=== PATIENT | male | born 1995 | race Caucasian/White ===

== ENCOUNTER 2018-03-15 09:42 | Outpatient (CLI) | payer OTHER, SELFPAY ==
--- NOTE | 2018-03-15 09:55 | DI.RAD_ITS ---
SYMPTOM/DIAGNOSIS: LT KNEE PAIN LEFT KNEE: Three views. No bone or joint abnormality is identified. There is a 1 cm. metallic foreign body in the soft tissues lateral to the head of the fibula. The soft tissues are otherwise unremarkable. IMPRESSION: No acute abnormality. If there is concern for internal derangement, an MRI should be considered for further evaluation.
== END 2018-03-15 10:02 ==
PROVIDERS: Visit Provider Physician Assistant
DX: M25.562 Pain in left knee (principal); M79.5 Residual foreign body in soft tissue
CPT/HCPCS: 73562

== ENCOUNTER 2018-04-21 00:59 | Outpatient (CLI) | payer OTHER, SELFPAY ==
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
== END 2018-04-21 01:19 ==
PROVIDERS: PCP Nurse Practitioner Adult Health; Visit Provider Nurse Practitioner Adult Health
DX: M25.562 Pain in left knee (principal); M23.92 Unspecified internal derangement of left knee; Z18.10 Retained metal fragments, unspecified
CPT/HCPCS: 73721

== ENCOUNTER 2023-07-22 12:42 | Emergency (ER) | payer OTHER, SELFPAY ==
[2023-07-22 12:57] VITALS: BP 136/72; PULSE 115; RESP 18; TEMP 36.5; O2SAT 96
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
[2023-07-22] MEDS: Acetaminophen 325 MG TAB 650 MG PO (13:50)
--- NOTE | 2023-07-22 14:11 | DI.RAD_ITS ---
Exam(s) XR ELBOW LT COMPLETE EXAM: XR ELBOW LT COMPLETE CLINICAL HISTORY: fall with possible fx. TECHNIQUE: 2D digital imaging was performed. COMPARISON: No exams were available for comparison FINDINGS: 3 views There is a mildly depressed fracture in the lateral half of the radial head-neck. No other fractures evident. Joint effusion noted. IMPRESSION: Radial head-neck fracture as described above. There is slight step-off at the articular surface frac ture site. DATA REPOSITORY: RADIATION DOSE DELIVERED:
[2023-07-22 14:57] VITALS: PULSE 103
[2023-07-22 15:04] VITALS: PULSE 94; RESP 18; O2SAT 98
== END 2023-07-22 15:03 ==
PROVIDERS: Emergency Provider Nurse Practitioner Family; PCP Nurse Practitioner Adult Health
DX: S52.135A Nondisplaced fracture of neck of left radius, initial encounter for closed fracture (principal); F17.210 Nicotine dependence, cigarettes, uncomplicated; W00.0XXA Fall on same level due to ice and snow, initial encounter; Y93.67 Activity, basketball; Y92.39 Other specified sports and athletic area as the place of occurrence of the external cause
CPT/HCPCS: 99283; 73080

== ENCOUNTER 2023-08-17 15:58 | Outpatient (CLI) | payer OTHER, SELFPAY ==
--- NOTE | 2023-08-17 11:00 | DI.RAD_ITS ---
Exam(s) XR ELBOW LT COMPLETE EXAM: XR ELBOW LT COMPLETE CLINICAL HISTORY: F/U FRACTURE. TECHNIQUE: 2D digital imaging was performed. Three views. COMPARISON: DX ELBOW 2V from 07/20/2023 CR XR ELBOW LT COMPLETE from 07/22/2023 FINDINGS: BONES: Slightly increased separation at the radial head fracture versus differences in projection. M ild callus formation. Question of slight declivity in the capitellum. No bony destructive lesion is seen. JOINTS: The elbow is normally aligned. A large joint effusion is seen. SOFT TISSUE: Posteromedial soft tissue edema. IMPRESSION: Increased separation at the articular aspect of the radial head versus differences in projection. Sl ight declivity the capitellum could represent impaction fracture. DATA REPOSITORY: RADIATION DOSE DELIVERED:
== END 2023-08-17 15:59 | disposition home or self-care (01) ==
LOC: DIORS 15:58
PROVIDERS: Visit Provider Student in an Organized Health Care Education/Training Program
DX: S52.122D Displaced fracture of head of left radius, subsequent encounter for closed fracture with routine healing (principal); X58.XXXD Exposure to other specified factors, subsequent encounter
CPT/HCPCS: 73080

== ENCOUNTER 2023-10-20 09:26 | Day surgery (SDC) | payer OTHER, SELFPAY ==
[2023-10-20 09:35] VITALS: BP 134/78; PULSE 94; RESP 20; TEMP 36.6; O2SAT 98
--- NOTE | 2023-10-20 09:54 | W.PM.DSUDISC ---
Date of service: 10/20/23 Time of Service: 09:54 Discharge Plan Disposition Patient Disposition: Home Condition: Good Discharge Details Reason For Visit: L Knee FB removal Attending Provider: Olivier Edmonds Primary Care Provider: Unknown,Unknown Home Meds and New Rx's Prescriptions: New hydrocodone-acetaminophen 5-325 mg tablet 1 tab PO Q6H PRN (Reason: pain) Qty: 3 0RF Continued buprenorphine HCl 8 mg tablet, sublingual 16 mg sublingual DAILY clonidine HCl 0.2 mg tablet 0.2 mg PO DAILY divalproex 500 mg tablet,delayed release (DR/EC) 2,000 mg PO DAILY docusate sodium 100 mg capsule 100 mg PO DAILY hydrocortisone [Anti-Itch (HC)] 1 % cream 1 applic topical TID PRN levothyroxine 150 mcg capsule 150 mcg PO DAILY metformin 500 mg tablet extended release 24 hr 500 mg PO DAILY omeprazole 40 mg capsule,delayed release(DR/EC) 40 mg PO DAILY quetiapine 100 mg tablet 100 mg PO TID quetiapine [Seroquel] 50 mg tablet 50 mg PO DAILY Discontinued acetaminophen 500 mg capsule 1,000 mg PO Q6H PRN ibuprofen 200 mg tablet 600 mg PO Q6H PRN Discharge Instructions Additional Instructions: Knee Manipulation Discharge Instructions Activity: You may bear weight as tolerated, using crutches only for support/comfort. You should apply ice to help with swelling and elevate when possible (especially in the first few days). Dressings: The knee dressing may come down after 72 hours. You may shower and get the wound wet at that time. Medications: - You have been prescribed hydrocodone for breakthrough pain. - Recommend to take up to 1000mg of Acetaminophen (Tylenol) and 600mg of Ibuprofen (Advil) every 8 hours as needed. Follow-up: 7-10 days Referrals: Olivier Edmonds MD [ [facility] STAFF PHYSICIAN] - Equipment/Supplies: Partial Weight Bearing Crutches Activity:: Activity as Tolerated Remove Dressings/Wound Care:: 72 hours Shower/Bathe:: 72 hours Diet:: As Tolerated Discharge Orders Discharge Orders: Discharge Order (Routine); Ordered 10/20/23 Ordered By: Gustavo Gaston DS: Diagnosis Discharge Diagnosis (1) Metal foreign body in lower extremity: Status: Acute
[2023-10-20] MEDS: Lactated Ringers 1,000 ML 80 ML IV (10:27)
[2023-10-20] MEDS: Celecoxib 200 MG CAP 400 MG PO (10:28)
[2023-10-20] MEDS: Acetaminophen 500 MG TAB 1000 MG PO (10:28)
--- NOTE | 2023-10-20 11:43 | W.ANESPRE ---
General Info Date of Service Date Performed: 10/20/23 Height: 5 ft 11 in Weight: 132.3 kg Body Mass Index (BMI): 40.6 Surgical Procedure: Operation Date: 10/20/23 12:25 Proposed Procedure Side Surgeon p Foreign Body Removal Knee Left Olivier Edmonds MD Meds Allergies and Home Medications Allergies Allergy/AdvReac Type Severity Reaction Status Date / Time mushroom Allergy Anaphylaxsi Verified 10/18/23 10:51 s Penicillins Allergy Diarrhea Verified 10/18/23 10:51 Home Medication Medication Instructions Recorded buprenorphine HCl 8 mg sublingual 16 mg sublingual DAILY 06/02/23 tablet clonidine HCl 0.2 mg tablet 0.2 mg PO DAILY 06/02/23 divalproex 500 mg tablet,delayed 2,000 mg PO DAILY 06/02/23 release docusate sodium 100 mg capsule 100 mg PO DAILY 06/02/23 hydrocortisone 1 % topical cream 1 applic topical TID PRN 06/02/23 (Anti-Itch (hydrocortisone)) levothyroxine 150 mcg capsule 150 mcg PO DAILY 06/02/23 metformin 500 mg tablet,extended 500 mg PO DAILY 06/02/23 release 24 hr omeprazole 40 mg capsule,delayed 40 mg PO DAILY 06/02/23 release quetiapine 100 mg tablet 100 mg PO TID 06/02/23 quetiapine 50 mg tablet (Seroquel) 50 mg PO DAILY 07/22/23 hydrocodone 5 mg-acetaminophen 325 1 tab PO Q6H PRN pain #3 tabs 10/20/23 mg tablet Current Visit Medications: Current Medications Generic Name Dose Route Start Last Admin Trade Name Freq PRN Reason Stop Dose Admin Acetaminophen 1,000 mg 10/20/23 06:00 10/20/23 10:28 Acetaminophen 500 Mg Tab PO 10/20/23 23:59 1,000 mg PREOP YOUNG Administration Acetaminophen 650 mg 10/20/23 09:54 Acetaminophen 325 Mg Tab PO 11/19/23 09:53 Q4H PRN PRN Hydrocodone Bitart/Acetaminophen 0 tab 10/20/23 09:54 Hydrocodone 5/Acetaminophen 325 Tab PO 11/19/23 09:53 Q3H PRN PRN Pain Celecoxib 400 mg 10/20/23 06:00 10/20/23 10:28 Celecoxib 200 Mg Cap PO 10/20/23 23:59 400 mg PREOP YOUNG Administration Ringer's Solution 1,000 mls @ 80 mls/hr 10/20/23 06:00 10/20/23 10:27 IV 10/20/23 23:59 80 mls/hr INFUSION YOUNG Administration Cefazolin Sodium 3,000 mg/ 100 mls @ 200 mls/hr 10/20/23 06:00 Sodium Chloride IVPB 10/20/23 23:59 PREOP YOUNG IV Miscellaneous Supplies 1 each 10/20/23 06:00 Iv Access IV 10/20/23 23:59 DIRECTED YOUNG Sodium Chloride 0 ml 10/20/23 06:00 Normal Saline Flush 10 Ml Syr IV 10/20/23 23:59 PRN PRN Sodium Chloride 0 ml 10/20/23 06:00 Normal Saline 10 Ml Vial IJ 10/20/23 23:59 DIRECTED PRN Sterile Water 0 ml 10/20/23 06:00 Water,Injection,Sterile 10 Ml Vial IJ 10/20/23 23:59 DIRECTED PRN PFSH Active Problems Active Problems: Problem Status Onset Code Metal foreign body in lower extremity S80.859A Status post arthroscopy of left knee Z98.890 Internal derangement of left knee M23.92 Medical History Medical History Diabetes type 2, controlled Hypothyroidism GERD (gastroesophageal reflux disease) Hx of drug abuse Adjustment disorder with anxious mood Seizures Per [facility] these have not been confirmed and there are no records, pt tells corrections that he has them but per corrections he has never had one while incarcerated. Tobacco Smoking/Tobacco Use Status: Former Tobacco Use Substance Use Substance use: Current Sobriety Substance use type: former substance user and prescription drug Vital Signs and Lab Results Vital Signs Most Recent Vital Signs in EMR: Most Recent Vital Signs Temp Pulse Resp BP Pulse Ox 36.6 C 94 H 20 134/78 98 10/20/23 09:35 10/20/23 09:35 10/20/23 09:35 10/20/23 09:35 10/20/23 09:35 Point of Care Results Point of Care Results: Finger Stick Blood Glucose 90 10/20/23 10:12 Lab Results Blood Type / Crossmatch: No Data to Display Complete Blood Count: No Data to Display Complete Metabolic Panel: No Data to Display Liver Function Panel: No Data to Display Coagulation Panel: No Data to Display Cardiac Panel: No Data to Display Arterial Blood Gas: No Data to Display Venous Blood Gas: No Data to Display Pancreas Panel: No Data to Display Thyroid Panel: No Data to Display Infectious Disease: No Data to Display Blood Cultures: No Data to Display Toxicology Panel: No Data to Display Anesthesia Assessment and Plan Anesthesia History Personal History: No History of General Anesthesia Family History: No Family History of Anesthesia Complications Exercise Tolerance Exercise Tolerance: Metabolic Equivalents>4 Pertinent Negatives Pertinent Negatives: No Major Cardiovascular Symptoms or Complaints, No Major Pulmonary Symptoms or Complaints and No History of CVA/TIA Cardiac & Pulmonary Exam Cardiac Exam: Normal S1/S2 Heart Sounds Pulmonary Exam: Clear Bilateral Breath Sounds Cardiac and Pulmonary Comment:: Smoker Implantable Cardiac Device Does patient have a Pacemaker or an ICD?: No Airway Exam Known Difficult Airway: No Mallampati Class: 2 Mouth Opening: Normal (> 3cm) Thyromental Distance: Greater than 3 cm Neck Range of Motion: Full ROM Neck Circumference: Thick Teeth Condition: Normal Dentition ASA Classification ASA Score: ASA 3 Emergency Case?: No NPO Status NPO Status: NPO Clears >2 hours, Solids >8 hours Anesthesia Plan Resuscitation Status: Full Code Anesthesia Technique: General Anesthesia Airway Planned: Natural Airway Monitors Used: Standard Monitors
[2023-10-20 11:56] VITALS: BMI 40.6
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
[2023-10-20] MEDS: ceFAZolin 3,000 MG in Normal Saline 100 ML 200 MG IVPB (13:00)
[2023-10-20] MEDS: Bupivacaine 0.25% Pres-Free W/EPI 30 ML VIAL ×2 (13:18→13:44)
--- NOTE | 2023-10-20 13:32 | DI.RAD_ITS ---
Exam(s) XR KNEE LT 1V EXAM: XR KNEE LT 1V CLINICAL HISTORY: FOREIGN BODY LEFT KNEE. TECHNIQUE: 2D digital imaging was performed. COMPARISON: No exams were available for comparison FINDINGS: Possibly provided during orthopedic procedure on knee. See procedure report for details Total fluoroscopy time 5 seconds IMPRESSION: Radiation exposure index/cumulative dose: Connor,r= 0.5515mGy DATA REPOSITORY: RADIATION DOSE DELIVERED:
--- NOTE | 2023-10-20 13:34 | W.PM.OP ---
Date of service: 10/20/23 Time of Service: 13:15 Operative Note Operative Note DATE OF PROCEDURE: 10/20/23 PRE-OP DIAGNOSIS: Painful Foreign Body - Left Knee POST-OP DIAGNOSIS: same PROCEDURE: Removal of Foreign Body - Left Knee Soft Tissues SURGEON: Olivier Edmonds ANESTHESIA TYPE: General:No Airway Refer to Anesthesia Record ESTIMATED BLOOD LOSS: 10 PATHOLOGY: none sent COMPLICATIONS: None Patient was transported to: PACU Patient's condition: stable Indications: I have seen Alvarado in clinic for symptoms of a painful foreign body about the lateral soft tissues of the left knee adjacent to the fibular head. I discussed the technical details of foreign body removal. It does seem to be a source of pain, reproduced in the clinic. I explained the risks of the procedure to include, but not limited to, bleeding, infection, pain, stiffness, damage to nerves and vessels, damage to muscles and tendons. Despite these risks, he elected to proceed. Findings: There is a metallic loose body adjacent to the fibular head which was mobile and irritating underlying soft tissues. It was removed in whole. Some surrounding bursitis and inflammatory tissue was removed as well. Procedure Description: Alvarado was greeted in the preoperative holding area where the correct side was identified and marked. The consent was reviewed with the patient and signed. The history and physical was updated. All questions were answered. Alvarado was brought to the operating room. He was placed in the supine position on the operating room bed. The left leg was prepped with ChloraPrep and draped in a standard fashion. The previous stockinette was placed and the surgical site was isolated and once again prepped with ChloraPrep prior to making incision. Prophylactic antibiotics in form of cefazolin were given. A timeout was performed for safe surgery. I then utilized fluoroscopy to identify the exact location of the foreign body adjacent to the fibular head. This was marked on the skin after both AP and lateral images were performed. With the knee in 90 degrees of flexion to remove some tension from the common peroneal nerve and positioned more posteriorly, I made a 3 cm incision centered over the suspected location of the foreign body. This was taken down through the skin sharply. Deeper dissection was carried out with electrocautery and bleeding was cauterized. Deeper dissection was carried down into the suprafascial tissue where the metallic foreign body was identified. There was a notable bursitis surrounding it. It was freed from bursal attachments. It was then removed in whole. Fluoroscopy confirmed removal of the foreign body. The surrounding inflammatory bursal tissue was removed with a rongeur. The wound was then irrigated. The wound was injected with 0.25% bupivacaine with epinephrine. Deep tissues were then reapproximated with 2-0 Vicryl. The skin was closed with a running 3-0 Monocryl in a subcuticular fashion. This was reinforced with skin glue. A Mepilex silver dressing was applied. Alvarado has a good prognosis. He may weight-bear as tolerated without restrictions. I would suggest some compression in the form of a knee sleeve or an Chepe wrap.
[2023-10-20 13:38] VITALS: BP 126/64; PULSE 83; RESP 16; TEMP 36.4; O2SAT 95
[2023-10-20 14:10] VITALS: BP 107/69; PULSE 78; RESP 18; TEMP 36.4; O2SAT 94
--- NOTE | 2023-10-20 14:25 | W.ANESPOSTOP ---
Postoperative Evaluation Date, Time and Location Date Performed: 10/20/23 Time Performed: 13:41 Patient Location: Day Surgery Unit Vital Signs Most Recent Imported Vital Signs: Most Recent Vital Signs Temp Pulse Resp BP Pulse Ox 36.4 C L 78 18 107/69 94 10/20/23 14:10 10/20/23 14:10 10/20/23 14:10 10/20/23 14:10 10/20/23 14:10 Pain Score Most Recent Pain Score: Most Recent Pain Score Pain Level 0 10/20/23 14:10 Assessment Mental Status: Awake (Alert & Oriented to Patient Baseline) Airway and Respiratory Function: Patent airway with normal (patient baseline) respiratory exam Cardiovascular Function: Hemodynamically Stable Hydration Status: Adequately Hydrated Nausea & Vomiting: No Nausea or Vomiting Pain: Pt. Denies Any Pain Peripheral Nerve Block: Patient did not receive a nerve block
== END 2023-10-20 14:25 | disposition home or self-care (01) ==
PROVIDERS: Visit Provider Student in an Organized Health Care Education/Training Program
PROC: (CPT 27340; principal; 2023-10-20 12:15)
DX: M79.5 Residual foreign body in soft tissue (principal); Z18.10 Retained metal fragments, unspecified; M25.562 Pain in left knee; E11.9 Type 2 diabetes mellitus without complications
CPT/HCPCS: 27340; 20525; 77002; 76000; 73560; J0690; J1885; J2001; J2250; J2405; J2704